=== PATIENT | female | born 1955 | race Caucasian/White ===

== ENCOUNTER 2024-04-04 10:23 | Day surgery (SDC) | payer MEDICARE ==
[~2024-04-04 10:23] MED LIST: Midazolam 1 MG/ML 2 ML SDV ONE; Propofol 200 MG/20 ML SDV ONE
[2024-04-04] MEDS ORDERED: Sodium Chloride 0.9% 10 ML Syringe FLUSH PRN (10:30)
[2024-04-04] MEDS: Lactated Ringers 1,000 ML IV SCH (10:50)
[2024-04-04] MEDS ORDERED: Propofol 200 MG/20 ML SDV IVPUSH ONE (11:48)
== END 2024-04-04 12:59 | disposition home or self-care (01) ==
LOC: LL.SDS 10:23
PROVIDERS: ATTEND Surgery
DX: D12.5 Benign neoplasm of sigmoid colon (principal); K64.8 Other hemorrhoids; K59.09 Other constipation; D64.9 Anemia, unspecified; E78.5 Hyperlipidemia, unspecified; I10 Essential (primary) hypertension; M25.359 Other instability, unspecified hip; M17.11 Unilateral primary osteoarthritis, right knee; F17.210 Nicotine dependence, cigarettes, uncomplicated; Z79.899 Other long term (current) drug therapy; Z91.09 Other allergy status, other than to drugs and biological substances
CPT/HCPCS: 00811; 88305; J2250; J2704; J7120

== ENCOUNTER 2025-04-03 08:57 | Day surgery (SDC) | payer MEDICARE ==
[~2025-04-03 08:57] MED LIST changes: -Midazolam 1 MG/ML 2 ML SDV ONE; -Propofol 200 MG/20 ML SDV ONE; +Sodium Chloride 0.9% 10 ML Syringe FLUSH PRN
[2025-04-03] MEDS: Lactated Ringers 1,000 ML IV SCH (09:05)
[2025-04-03] MEDS ORDERED: Midazolam 1 MG/ML 2 ML SDV ONE (09:39)
[2025-04-03] MEDS ORDERED: Propofol 200 MG/20 ML SDV ONE (09:39)
[2025-04-03] MEDS ORDERED: Glycopyrrolate 0.2 MG/ML SDV IVPUSH ONE (09:47)
== END 2025-04-03 11:11 | disposition home or self-care (01) ==
LOC: LL.SDS 08:57
PROVIDERS: ATTEND Surgery
DX: K21.00 Gastro-esophageal reflux disease with esophagitis, without bleeding (principal); K22.89 Other specified disease of esophagus; R05.3 Chronic cough
CPT/HCPCS: 43239; 88305; J1596; J2250; J2704; J7120